=== PATIENT | female | born 1985 | race African-American/Black ===

== ENCOUNTER 2017-01-18 14:08 | Emergency (ER) | payer MEDICAID ==
[~2017-01-18] VITALS: Ht 154.9 cm; Wt 98.0 kg
[2017-01-18] MEDS ORDERED: KETOROLAC 30MG/ML VIAL IM ONE (16:15)
[2017-01-18 17:44] VITALS: BP 126/74
== END 2017-01-18 17:45 | disposition home or self-care (01) ==
LOC: ER 14:08
DX: M25.562 Pain in left knee (principal); M54.6 Pain in thoracic spine; M25.552 Pain in left hip; W01.0XXA Fall on same level from slipping, tripping and stumbling without subsequent striking against object, initial encounter; Y93.89 Activity, other specified; Y99.8 Other external cause status; Y92.89 Other specified places as the place of occurrence of the external cause; Z98.890 Other specified postprocedural states
CPT/HCPCS: 73502; 73562; 96372; 99284; J1885

== ENCOUNTER 2017-06-18 13:10 | Emergency (ER) | payer MEDICAID ==
[~2017-06-18] VITALS: Ht 154.9 cm; Wt 102.0 kg
[2017-06-18 17:12] VITALS: BP 124/72
== END 2017-06-18 17:40 | disposition home or self-care (01) ==
LOC: ER 13:10
DX: B34.9 Viral infection, unspecified (principal); E78.00 Pure hypercholesterolemia, unspecified
CPT/HCPCS: 87070; 87430; 87804; 99284

== ENCOUNTER 2019-07-23 15:38 | Emergency (ER) | payer MEDICAID ==
[~2019-07-23] VITALS: Ht 154.9 cm; Wt 111.0 kg
[2019-07-23] MEDS ORDERED: IBUPROFEN 600MG TABLET PO ONE (16:30)
[2019-07-23 16:49] VITALS: BP 114/61
== END 2019-07-23 18:43 | disposition home or self-care (01) ==
LOC: ER 15:38
DX: S16.1XXA Strain of muscle, fascia and tendon at neck level, initial encounter (principal); S29.011A Strain of muscle and tendon of front wall of thorax, initial encounter; E78.00 Pure hypercholesterolemia, unspecified; Z98.890 Other specified postprocedural states; V43.52XA Car driver injured in collision with other type car in traffic accident, initial encounter; Y93.89 Activity, other specified; Y92.488 Other paved roadways as the place of occurrence of the external cause
CPT/HCPCS: 71046; 72040; 93005; 99284

== ENCOUNTER 2021-03-29 09:42 | Emergency (ER) | payer MEDICAID ==
[~2021-03-29] VITALS: Ht 154.9 cm; Wt 108.0 kg
[2021-03-29 10:14] VITALS: BP 137/78
== END 2021-03-29 10:14 | disposition home or self-care (01) ==
LOC: ER 09:42
DX: L90.5 Scar conditions and fibrosis of skin (principal); Z98.890 Other specified postprocedural states
CPT/HCPCS: 99281